=== PATIENT | male | born 1980 | race African-American/Black ===

== ENCOUNTER 2020-03-16 14:17 | Emergency (ER) | payer OTHER ==
[2020-03-16] MEDS ORDERED: Ketorolac Tromethamine 60 MG/2 ML VIAL ONE (15:02)
--- NOTE | 2020-03-16 20:10 | RAD ---
LUMBAR SPINE THREE VIEWS: 03/16/20 No prior films were available for comparison. There has been a prior posterior fusion of T11 and T12 with pedicle screws. The spinous process of L1 also appears to be fused to those vertebrae above. Very minimal disc space narrowing is seen at L2-L 3 and L4-L5. No current fracture or dislocation was seen. there may be some minor sclerosis of the up per part of the left SI joint, but this would be better seen on cross-sectional imaging. Incidentally noted was a large amount of fecal material in the colon. IMPRESSION: Old postoperative changes and some minor disc space narrowing as noted above. Constipation. POS: HOME
== END 2020-03-16 16:09 | disposition home or self-care (01) ==
LOC: BURERS 14:17
DX: M54.5 Low back pain (principal); F17.290 Nicotine dependence, other tobacco product, uncomplicated
CPT/HCPCS: 72100; 96372; 99283; J1885